=== PATIENT | female | born 1955 | race Caucasian/White ===

== ENCOUNTER 2023-01-17 10:02 | Emergency (ER) | payer MEDICARE, SELFPAY ==
[2023-01-17 10:05] VITALS: BP 137/68; PULSE 86; RESP 16; TEMP 36.4; O2SAT 97; BMI 26.4
[2023-01-17 10:44] VITALS: BP 124/74; PULSE 79; RESP 16; TEMP 36.7; O2SAT 94
--- NOTE | 2023-01-17 11:03 | ED_ITS ---
HPI - Extremity Problem General Chief complaint: Extremity Problem Stated complaint: Bruise on arm Time Seen by Provider: 01/17/23 10:52 Source: patient Mode of arrival: ambulatory Limitations: no limitations History of Present Illness HPI Narrative: 67 year old female 1 mo s/p open heart surgery, on warfarin, presents to the ED today with complaint of bruising to right forearm upon waking up this morning. The area is not painful or tender to the touch. Upon checking into the ED, states she remembered that she picked up something very heavy yesterday and believes that is why she is bruised there. She was recently placed on warfarin after having open heart surgery. She has nurse come to her house every week to check her coagulation status. She did not have them checked this week due to the holiday. She has an appointment with them tomorrow morning for repeat blood work. Denies any other bruising or bleeding. Denies complaints at this time. Related Data Allergies Allergy/AdvReac Type Severity Reaction Status Date / Time No Known Allergies Allergy Verified 01/17/23 10:10 Review of Systems 2 Review of Systems: Constitutional: No fever, chills, fatigue, night sweats, weight changes ENT/Mouth: No ear pain, hearing loss, nasal congestion, sinus pain, rhinorrhea, sore throat Eyes: No eye pain, swelling, redness, vision changes, discharge Cardio: No chest pain, palpitations, BALLARD, orthopnea, peripheral edema Pulm: No SOB, cough, sputum, wheezing, dyspnea, hemoptysis GI: No nausea, vomiting, hematemesis, abdominal pain, diarrhea, constipation, hematochezia, melena : No irregular bleeding, dysuria, frequency, urgency, hesitancy, hematuria, flank pain, urinary flow changes, urinary incontinence or retention MSK: No back pain, neck pain, joint pain, myalgias Skin: No lesions, rashes Neuro: No weakness, numbness, paresthesias, LOC, dizziness, headache Psych: No anxiety/panic, depression, SI/HI, AH/VH Heme/Lymph: + bruising, No bleeding, lymphadenopathy Endocrine: No polyuria, polydipsia, temperature intolerance All other systems reviewed and are negative. [facility] Past Medical History Attestation statement: The following information was validated with the patient. Source: old records reviewed and nursing notes reviewed Social History Alcohol intake: current Alcohol intake frequency: holidays/special occasions only Smoked in Last 30 Days: No Use of substances other than those prescribed or required for medical reasons: No Advance Directives: Yes Advance Directives Information Provided: Yes Advance Directives on File: No Physical Exam 2 Vital Signs: Vital Signs: Last Vital Signs Temp 98.1 F 01/17/23 10:44 Pulse 79 01/17/23 10:44 Resp 16 01/17/23 10:44 BP 124/74 01/17/23 10:44 Pulse Ox 94 01/17/23 10:44 O2 Del Method Room Air 01/17/23 10:44 BMI result Body Mass Index 26.4 Vital signs stable Const: General: cooperative, healthy appearing, comfortable, no acute distress, alert and awake Orientation/consciousness: patient oriented x3 L imitations: no limitations HEENT: Head: Yes normal to inspection Ears: hearing grossly normal bilaterally General nose exam: Normal external nose present Mouth: Normal oral and palatal mucosa present and moist mucous membranes Eyes: General: appearance normal, both eyes and all related structures C onjunctivae: conjunctivae normal Sclerae: sclerae normal Pupils: Equal, round and reactive pupils present Neck: Neck: Yes normal visual inspection and Yes no JVD Resp: Effort & Inspection: normal respiratory effort Auscultation: clear to auscultation bilaterally Cardio: Rate: regular rate Rhythm: regular rhythm Peripheral pulses: r adial pulses present Skin: Other: + refer to photos below. + there is an area of healing ecchymoses noted to the lateral aspect of right forearm/wrist. Full ROM of wrist intact. Not tender to palpation. No palpable fluctuance or deformity. No warmth. + no other ecchymosis noted to upper or lower extremities General skin exam: no rashes or lesions noted Neuro: General: patient oriented x3, gait normal and moves all extremities Cranial nerves: Yes Equal, round and reactive pupils present Extrem: General: Yes normal to inspection and Yes full ROM Course Course Course Narrative: Patient's physical exam is benign. There is minimal bruising noted to the lateral aspect of the wrist. No deformity or palpable tenderness. Likely ecchymoses secondary to warfarin use. I feel comfortable discharging patient home as she has labs and follow-up appointment in the morning. She agrees with this plan. Would rather have her blood drawn by her visiting nurse. Discussed strict return precautions. All questions answered at this time. Patient is agreeable disposition stable for discharge home with close follow-up in the morning via visiting nurse. Medical Decision Making Medical Decision Making [facility] Narrative: 67 year old female 1 mo s/p open heart surgery, on warfarin, presents to the ED today with complaint of bruising to right forearm upon waking up this morning. VSS. Nontoxic appearing and in NAD. On exam, there is an area of healing ecchymoses noted to the lateral aspect of right forearm/wrist. Full ROM of wrist intact. Not tender to palpation. No palpable fluctuance or deformity. No warmth. No other ecchymosis noted to upper or lower extremities. Clinical concern for superficial bruising secondary to warfarin use. Unlikely TTP, DIC, ITP or other hematologic syndrome. Patient states she would rather have labs drawn by her visiting nurse tomorrow morning. I do not feel as though labs are necessary at this time. There is no trauma or injury to the wrist. Imaging of the wrist is not warranted at this time. Differential Diagnosis Differential Diagnoses: The differential diagnosis associated with the presentation includes As above. Admission/Observation Not indicated Critical Care Time Critical Care Time Critical Care Time: No Discharge Plan Discharge Clinical Impression: Superficial bruising of upper limb Patient Disposition: Home, Self-Care Additional Instructions: You presented to the ED with a bruise on your right arm in healing stages. You may apply ice to the area to help with pain/discomfort. Keep your scheduled appointment with your doctor tomorrow regarding coagulation check. If your symptoms persist or worsen or you develop further bruising, red/purple spots on the body, or bleeding return to the emergency department. The case of an emergency call 911. Interventions: ED Discharge Assessment Last Done: 01/17/23 11:22 Discharge Date/Time: 01/17/23 11:22
== END 2023-01-17 11:22 | disposition home or self-care (01) ==
PROVIDERS: Emergency Provider Emergency Medicine
DX: S40.021A Contusion of right upper arm, initial encounter (principal); S50.11XA Contusion of right forearm, initial encounter; X58.XXXA Exposure to other specified factors, initial encounter; Y93.9 Activity, unspecified; Y92.9 Unspecified place or not applicable; Y99.9 Unspecified external cause status
CPT/HCPCS: 99282; 99284